=== PATIENT | male | born 1955 | race Caucasian/White ===

== ENCOUNTER → 2022-10-30 | Outpatient (CLI) | payer MEDICARE, OTHER ==
[2022-10-30 18:53] LABS: POTASSIUM 3.5 mmol/L (3.5-5.1)
[2022-10-30 18:54] LABS: CALCIUM 9.6 mg/dL (8.3-10.5)
== END ==
LOC: LAB 18:20
PROVIDERS: Nurse Practitioner Family
DX: U07.1 COVID-19 (principal)